=== PATIENT | male | born 1980 ===

== ENCOUNTER 2023-10-19 11:45 | Inpatient (IN) | payer OTHER ==
[~2023-10-19] VITALS: Ht 177.8 cm; Wt 82.6 kg
[2023-10-30] MEDS ORDERED: ONDANSETRON HCL 2 MG/ML VIAL IV PRN (12:45)
[2023-10-30] MEDS ORDERED: OxyCODONE HCL 5 MG TABLET (ROXICODONE) PO PRN (12:45)
[2023-10-30] MEDS ORDERED: DEXTROSE 50 % IN WATER 0.5 G/ML VIAL IV PRN (12:45)
[2023-10-30] MEDS ORDERED: MORPHINE SULFATE 4 MG/ML CARTRIDGE IV PRN (12:45)
[2023-10-30] MEDS ORDERED: HYOSCYAMINE SULFATE 0.125 MG TAB.SUBL SL SCH (13:00)
[2023-10-30] MEDS ORDERED: CEFTRIAXONE SODIUM 2,000 MG VIAL IV SCH (13:15)
[2023-10-30] MEDS ORDERED: METRONIDAZOLE/SODIUM CHLORIDE 500 MG/100 ML PIGGYBACK IV SCH ×2 (13:15→17:00)
[2023-10-30] MEDS ORDERED: ACETAMINOPHEN 500 MG GEL..CAP PO SCH (14:00)
[2023-10-30 15:57] LABS: HEMATOCRIT 44.2 % (39.0-48.0); MEAN CELL VOLUME 84.7 fL (80.0-100.00); MEAN CORPUSCULAR HEMOGLOBIN 28.8 pg (27.00-32.0); PLATELET COUNT 192 K/uL (150-450); RED BLOOD COUNT 5.21 M/uL (4.00-6.00); RED CELL DISTRIBUTION WIDTH 13.9 % (11.5-14.5)
[2023-10-30 16:17] LABS: ALBUMIN 3.8 gm/dL (3.4-5.0); CREATININE SERUM 0.93 mg/dL (0.70-1.30); GFR 88.68; MAGNESIUM 1.7 mg/dL (1.8-2.4); PHOSPHOROUS 3.3 mg/dL (2.5-4.9); POTASSIUM 3.55 mEq/L (3.5-5.1)
[2023-10-30] MEDS ORDERED: POLYETHYLENE GLYCOL 3350 17 GM BLIST.PACK PO SCH (17:00)
[2023-10-30] MEDS ORDERED: GABAPENTIN 300 MG CAPSULE PO SCH (17:00)
[2023-10-30] MEDS ORDERED: FAMOTIDINE/PF 20 MG/2 ML VIAL IV PUSH SCH (21:00)
[2023-10-31 06:49] LABS: HEMOGLOBIN 14.2 g/dL (13-16.00); MEAN CELL VOLUME 83.1 fL (80.0-100.00); MEAN CORPUSCULAR HEMOGLOBIN 28.7 pg (27.00-32.0); MEAN CORPUSCULAR HGB CONC 34.5 g/dl (32.0-36.0); PLATELET COUNT 189 K/uL (150-450); RED BLOOD COUNT 4.93 M/uL (4.00-6.00); RED CELL DISTRIBUTION WIDTH 14.2 % (11.5-14.5)
[2023-10-31 07:02] LABS: ALBUMIN 3.4 gm/dL (3.4-5.0); CALCIUM 8.7 mg/dL (8.5-10.1); CREATININE SERUM 0.8 mg/dL (0.70-1.30); GFR 105.5; MAGNESIUM 1.6 mg/dL (1.8-2.4); PHOSPHOROUS 3.3 mg/dL (2.5-4.9); POTASSIUM 4.06 mEq/L (3.5-5.1)
[2023-10-31] MEDS ORDERED: ENOXAPARIN SODIUM 40 MG/0.4 ML SYRINGE SUBCUTANEO SCH (17:00)
[2023-10-31] MEDS ORDERED: ORPHENADRINE CITRATE 30 MG/ML AMPUL IM SCH (21:00)
[2023-11-01 06:53] LABS: HEMATOCRIT 42.6 % (39.0-48.0); HEMOGLOBIN 14.7 g/dL (13-16.00); MEAN CORPUSCULAR HEMOGLOBIN 28.7 pg (27.00-32.0); MEAN CORPUSCULAR HGB CONC 34.5 g/dl (32.0-36.0); PLATELET COUNT 202 K/uL (150-450); RED BLOOD COUNT 5.14 M/uL (4.00-6.00); RED CELL DISTRIBUTION WIDTH 14.2 % (11.5-14.5)
[2023-11-01 07:04] LABS: ALBUMIN 3.6 gm/dL (3.4-5.0); CREATININE SERUM 0.71 mg/dL (0.70-1.30); GFR 121.08; MAGNESIUM 2.1 mg/dL (1.8-2.4); PHOSPHOROUS 2.2 mg/dL (2.5-4.9); POTASSIUM 3.87 mEq/L (3.5-5.1)
[2023-11-01] MEDS ORDERED: ENOXAPARIN SODIUM 40 MG/0.4 ML SYRINGE SUBCUTANEO SCH (09:00)
[2023-11-02] MEDS ORDERED: HYOSCYAMINE0.125 M1 SL (11:14)
[2023-11-02] MEDS ORDERED: PEPCID AC20 MG PO (11:14)
[2023-11-02] MEDS ORDERED: INTESTINEX680 M1 PO (11:15)
[2023-11-02] MEDS ORDERED: TRAM1TAB98 PO (11:15)
== END 2023-11-02 11:40 | disposition home or self-care (01) | DRG 329 ==
LOC: SURH 10-26 11:45 → O/R 10-30 08:47 → SURG 10-30 15:11 → SURH 10-31 06:12
PROVIDERS: ADMIT Surgery; ATTEND Surgery
PROC: 0DBP4ZZ Excision of Rectum, Percutaneous Endoscopic Approach (ICD-10-PCS; 2023-10-30)
PROC: 0DJD8ZZ Inspection of Lower Intestinal Tract, Via Natural or Artificial Opening Endoscopic (ICD-10-PCS; 2023-10-30)
PROC: 0DTN4ZZ Resection of Sigmoid Colon, Percutaneous Endoscopic Approach (ICD-10-PCS; principal; 2023-10-30 12:30)
DX: K57.20 Diverticulitis of large intestine with perforation and abscess without bleeding (principal); K65.8 Other peritonitis; K66.0 Peritoneal adhesions (postprocedural) (postinfection); R10.32 Left lower quadrant pain